=== PATIENT | male | born 1980 | race African-American/Black ===

== ENCOUNTER 2021-06-27 10:51 | Emergency (ER) | payer OTHER ==
[2021-06-27] MEDS ORDERED: MOTRIN600 MG PO (14:40)
== END 2021-06-27 15:07 | disposition home or self-care (01) ==
LOC: FER 10:51
DX: S99.912A Unspecified injury of left ankle, initial encounter (principal); S80.212A Abrasion, left knee, initial encounter; F17.290 Nicotine dependence, other tobacco product, uncomplicated; I10 Essential (primary) hypertension; Z23 Encounter for immunization; Z91.013 Allergy to seafood; Z79.82 Long term (current) use of aspirin; Z79.899 Other long term (current) drug therapy; V89.9XXA Person injured in unspecified vehicle accident, initial encounter; Y92.89 Other specified places as the place of occurrence of the external cause; Y99.0 Civilian activity done for income or pay
CPT/HCPCS: 73610; 90471; 90715